=== PATIENT | female | born 1975 | race Hispanic/Latino ===

== ENCOUNTER 2017-11-16 06:21 | Emergency (ER) | payer BC ==
[2017-11-16] MEDS ORDERED: DICYCLOMINE HCL 10 MG CAP ONE (07:33)
[2017-11-16] MEDS ORDERED: ONDANSETRON 4 MG (ODT) TAB ONE (07:33)
[2017-11-16 07:53] LABS: Urine Blood 2+ (NEG); Urine Glucose NEGATIVE (NEG); Urine Protein 1+ (NEG); Urine Specific Gravity 1.025 (1.005-1.030); Urine pH 5.5 (5.0-7.0)
--- NOTE | 2017-11-16 08:28 | ER ---
Nurse's Notes [facility] Name: Aurora Barboza Age: 41 yrs Sex: Female : 1975 Arrival Date: 11/16/2017 Time: 06:21 Bed 7 Private MD: Diagnosis: Abdominal and pelvic pain;Gastroenteritis Presentation: 11/16 06:33 Presenting complaint: Patient states: I THOUGHT I HAD A STOMACH BUG BUT LAST NIGHT IT bp STARTED HURTING TOO BAD. Transition of care: patient was not received from another setting of care. Onset of symptoms was November 15, 2017 at 21:00. Care prior to arrival: None. 06:33 Method Of Arrival: Ambulatory bp 06:33 Acuity: KIRT 3 bp Triage Assessment: 06:34 General: Appears in no apparent distress. comfortable, obese, Behavior is calm, bp cooperative, appropriate for age. Pain: Complains of pain in right upper quadrant and left upper quadrant Pain currently is 8 out of 10 on a pain scale. EENT: No deficits noted. Neuro: Level of Consciousness is awake, alert, obeys commands, Oriented to Appropriate for age. Cardiovascular: No deficits noted. Respiratory: Airway is patent Respiratory effort is even, unlabored, Respiratory pattern is regular, symmetrical. GI: Abdomen is obese, Abd is soft X 4 quads. Derm: No deficits noted. Musculoskeletal: Capillary refill. 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 - Social history:: Smoking status: Patient/guardian denies using tobacco. Screenin:01 Abuse screen: Denies threats or abuse. Denies injuries from another. Nutritional hj screening: No deficits noted. Tuberculosis screening: No symptoms or risk factors identified. Fall Risk None identified. Assessment: 07:01 GI: Bowel sounds present X 4 quads. hj 07:02 General: Appears in no apparent distress. uncomfortable, Behavior is calm, cooperative, hj appropriate for age. Pain: Complains of pain in right upper quadrant and left upper quadrant. Neuro: Level of Consciousness is awake, alert, obeys commands, Oriented to person, place, time, situation, Appropriate for age. Cardiovascular: Capillary refill < 3 seconds Patient's skin is warm and dry. Respiratory: Airway is patent Respiratory effort is even, unlabored, Respiratory pattern is regular, symmetrical. GI: Reports upper abdominal pain, nausea. GI: Abdomen is non-distended, Abd is soft Abd is non tender. : No signs and/or symptoms were reported regarding the genitourinary system. EENT: No signs and/or symptoms were reported regarding the EENT system. Derm: No signs and/or symptoms reported regarding the dermatologic system. Musculoskeletal: No signs and/or symptoms reported regarding the musculoskeletal system. 08:42 Reassessment: Patient and/or family updated on plan of care and expected duration. Pain hj level reassessed. Patient is alert, oriented x 3, equal unlabored respirations, skin warm/dry/pink. Vital Signs: 06:35 BP 131 / 74; Pulse 100; Resp 18; Temp 98.2; Pulse Ox 100% ; Weight 90.72 kg; Height 5 bp ft. 1 in. (154.94 cm); Pain 8/10; 07:03 BP 119 / 83; Pulse 95; Resp 18; Pulse Ox 100% on R/A; hj 08:41 BP 120 / 78; Pulse 90; Resp 18; Pulse Ox 100% on R/A; hj 06:35 Body Mass Index 37.79 (90.72 kg, 154.94 cm) bp ED Course: 06:21 Patient arrived in ED. ds1 06:29 Jeremy Goodrich, RN is Primary Nurse. bp 06:34 Triage completed. bp 06:35 Arm band placed on. bp 06:58 Manoj Avalos PA is PHCP. jr8 06:58 Benito Blunt MD is Attending Physician. jr8 07:01 Patient has correct armband on for positive identification. Placed in gown. Bed in low hj position. Call light in reach. Side rails up X 1. Adult w/ patient. 08:01 Patient moved to radiology via wheelchair. jb2 08:04 XRAY KUB In Process Unspecified. EDMS 08:18 X-ray completed. Patient tolerated procedure well. Patient moved back from radiology. jb2 08:40 No provider procedures requiring assistance completed. Patient did not have IV access hj during this emergency room visit. Administered Medications: 07:11 Drug: Bentyl 20 mg Route: PO; 07:15 Follow up: Response: No adverse reaction; Pain is decreased 07:11 Drug: Zofran 4 mg Route: PO; 07:16 Follow up: Response: No adverse reaction; Nausea is decreased Outcome: 08:27 Discharge ordered by MD. altman 08:41 Discharged to home ambulatory, with family. 08:41 Condition: stable 08:41 Discharge instructions given to patient, family, Instructed on discharge instructions, follow up and referral plans. medication usage, Demonstrated understanding of instructions, follow-up care, medications, Prescriptions given X 2. 08:42 Patient left the ED. Signatures: Dispatcher [employer] EDMS Romie Contreras jb2 Sho Dan Josh, PA PA jr8 Isaias Marie, RN RN Jeremy Solorzano, RN RN bp Corrections: (The following items were deleted from the chart) 08:11 08:03 X-ray completed. Patient tolerated procedure well. hunter jb2 08:11 08:03 Patient moved back from radiology. jb2 jb2
--- NOTE | 2017-11-16 08:28 | EDPHYS ---
Physician Documentation [facility] Name: Aurora Barboza Age: 41 yrs Sex: Female : 1975 Arrival Date: 11/16/2017 Time: 06:21 Bed 7 Private MD: ED Physician Benito Blunt HPI: 11/16 08:11 This 41 yrs old Female presents to ER via Ambulatory with complaints of jr8 Abdominal Pain. 08:11 The patient presents with abdominal pain in the upper abdomen. Onset: The jr8 symptoms/episode began/occurred acutely, 2 day(s) ago. The symptoms do not radiate. Associated signs and symptoms: Pertinent positives: nausea, vomiting, and diarrhea. The symptoms are described as crampy. Modifying factors: The symptoms are alleviated by nothing, the symptoms are aggravated by food. Severity of pain: At its worst the pain was mild in the emergency department the pain is unchanged. It is unknown whether or not the patient has had similar symptoms in the past. The patient has not recently seen a physician. Patient stated that she had n/v/d over the past two days with mild abdominal cramping. N/V/D has subsided. Had eaten a good bit yesterday. Started to have abdominal cramping again and wanted to be evaluated . 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 - Social history:: Smoking status: Patient/guardian denies using tobacco. ROS: 08:11 Eyes: Negative for injury, pain, redness, and discharge, ENT: Negative for injury, jr8 pain, and discharge, Neck: Negative for injury, pain, and swelling, Cardiovascular: Negative for chest pain, palpitations, and edema, Respiratory: Negative for shortness of breath, cough, wheezing, and pleuritic chest pain, Back: Negative for injury and pain, MS/Extremity: Negative for injury and deformity, Skin: Negative for injury, rash, and discoloration, Neuro: Negative for headache, weakness, numbness, tingling, and seizure. 08:11 Abdomen/GI: Positive for nausea, vomiting, and diarrhea, abdominal cramps, Negative for abdominal distension, anorexia, dysphagia, hematemesis, black/tarry stool, rectal pain, rectal bleeding, bowel incontinence, flatulence. Exam: 08:11 Eyes: Pupils equal round and reactive to light, extra-ocular motions intact. Lids and jr8 lashes normal. Conjunctiva and sclera are non-icteric and not injected. Cornea within normal limits. Periorbital areas with no swelling, redness, or edema. ENT: Nares patent. No nasal discharge, no septal abnormalities noted. Tympanic membranes are normal and external auditory canals are clear. Oropharynx with no redness, swelling, or masses, exudates, or evidence of obstruction, uvula midline. Mucous membranes moist. Neck: Trachea midline, no thyromegaly or masses palpated, and no cervical lymphadenopathy. Supple, full range of motion without nuchal rigidity, or vertebral point tenderness. No Meningismus. Cardiovascular: Regular rate and rhythm with a normal S1 and S2. No gallops, murmurs, or rubs. Normal PMI, no JVD. No pulse deficits. Respiratory: Lungs have equal breath sounds bilaterally, clear to auscultation and percussion. No rales, rhonchi or wheezes noted. No increased work of breathing, no retractions or nasal flaring. Back: No spinal tenderness. No costovertebral tenderness. Full range of motion. Skin: Warm, dry with normal turgor. Normal color with no rashes, no lesions, and no evidence of cellulitis. MS/ Extremity: Pulses equal, no cyanosis. Neurovascular intact. Full, normal range of motion. Neuro: Awake and alert, GCS 15, oriented to person, place, time, and situation. Cranial nerves II-XII grossly intact. Motor strength 5/5 in all extremities. Sensory grossly intact. Cerebellar exam normal. Normal gait. 08:11 Abdomen/GI: Inspection: abdomen appears normal, Bowel sounds: active, all quadrants, Palpation: abdomen is soft and non-tender, in all quadrants, Indicators: McBurney's point is not tender, Armstrong's sign is negative, Rovsing's sign is negative, Liver: no appreciated palpable abnormalities, tenderness, is not appreciated. Vital Signs: 06:35 BP 131 / 74; Pulse 100; Resp 18; Temp 98.2; Pulse Ox 100% ; Weight 90.72 kg; Height 5 bp ft. 1 in. (154.94 cm); Pain 8/10; 07:03 BP 119 / 83; Pulse 95; Resp 18; Pulse Ox 100% on R/A; hj 08:41 BP 120 / 78; Pulse 90; Resp 18; Pulse Ox 100% on R/A; hj 06:35 Body Mass Index 37.79 (90.72 kg, 154.94 cm) bp MDM: 06:58 Patient medically screened. jr8 08:26 Data reviewed: vital signs, nurses notes, lab test result(s), radiologic studies, plain jr8 films, and as a result, I will discharge patient. Data interpreted: Pulse oximetry: on room air is 100 %. Interpretation: normal. Counseling: I had a detailed discussion with the patient and/or guardian regarding: the historical points, exam findings, and any diagnostic results supporting the discharge/admit diagnosis, lab results, radiology results, the need for outpatient follow up, a family practitioner, to return to the emergency department if symptoms worsen or persist or if there are any questions or concerns that arise at home. Response to treatment: the patient's symptoms have markedly improved after treatment. Special discussion: Based on the patient's Hx, exam, and Dx evaluation, there is no indication for emergent surgery or inpatient Tx. It is understood by the patient/guardian that if the Sx's persist or worsen they need to return immediately for re-evaluation. 11/16 06:40 Order name: Urine Dipstick--Ancillary (enter results); Complete Time: 07:58 em1 11/16 06:40 Order name: Urine --Ancillary (enter results); Complete Time: 07:58 em1 11/16 07:45 Order name: ALVA TINOCO jr8 Administered Medications: 07:11 Drug: Bentyl 20 mg Route: PO; hj 07:15 Follow up: Response: No adverse reaction; Pain is decreased hj 07:11 Drug: Zofran 4 mg Route: PO; hj 07:16 Follow up: Response: No adverse reaction; Nausea is decreased hj Disposition: 11/17 00:20 Co-signature as Attending Physician, Benito Blunt MD I agree with the assessment and 4 plan of care. Disposition: 11/16/17 08:27 Discharged to Home. Impression: Abdominal and pelvic pain, Gastroenteritis. - Condition is Stable. - Discharge Instructions: Abdominal Pain, Adult, Viral Gastroenteritis. - Prescriptions for Bentyl 20 mg Oral Tablet - take 1 tablet by ORAL route every 6 hours As needed; 20 tablet. ondansetron 4 mg Oral tablet,disintegrating - take 1 tablet by ORAL route every 8 hours; 20 tablet. - Medication Reconciliation Form, Thank You Letter, Antibiotic Education, Prescription Opioid Use form. - Follow up: Private Physician; When: 5 - 6 days; Reason: Recheck today's complaints, Continuance of care, Re-evaluation by your physician. - Problem is new. - Symptoms have improved. Signatures: Dispatcher [employer] EDMS Manoj Avalos PA PA jr8 Isaias Marie RN RN hj Peltier, Brian, RN RN Benito Curtis MD MD [id number]
--- NOTE | 2017-11-16 09:19 | RAD REPORT ---
EXAM DESCRIPTION: RAD - Abdomen 1 View (KUB) - 11/16/2017 8:14 am CLINICAL HISTORY: Abdomen pain. FINDINGS: The bowel gas pattern is unremarkable. Small calcifications in the pelvis are nonspecific but probably represent phleboliths. Surgical clips are present within the right upper quadrant
== END 2017-11-16 08:42 | disposition home or self-care (01) ==
LOC: ER 06:21
DX: K52.9 Noninfective gastroenteritis and colitis, unspecified (principal)
CPT/HCPCS: 74018; 81003; 81025; 99283

== ENCOUNTER 2018-01-21 12:52 | Emergency (ER) | payer BC ==
[2018-01-21 15:13] LABS: BUN Blood Urea Nitrogen 10 mg/dL (6-20); Bicarbonate 27 mEq/L (21-31); Glucose Level 96 mg/dL (65-120); Potassium 3.7 mEq/L (3.6-5.0); Sodium Level 136 mEq/L (135-145)
[2018-01-21 15:36] LABS: Absolute Lymphocytes (CBC) 1.8 K/uL (0.7-4.9); Absolute Monocytes 0.6 K/uL (0.1-1.3); Absolute Neutrophil 4.4 K/uL (1.8-8.0); Basophils % 0.4 % (0-1.3); Eosinophils % 2.5 % (0-4.4); Lymphocytes % 25.5 % (15.3-44.8); MCH 30.2 pg (27.0-35.0); MCV 87.5 fL (80-100); MPV 10.1 fL (7.6-11.3); Monocytes % 8.1 % (3.3-12.3)
--- NOTE | 2018-01-21 15:40 | EDPHYS ---
Physician Documentation [facility] Name: Aurora Barboza Age: 42 yrs Sex: Female : 1975 Arrival Date: 01/21/2018 Time: 12:56 Bed 16 Private MD: Sancho Brand H ED Physician Hugo Oliver HPI: 01/21 14:47 This 42 yrs old Female presents to ER via Ambulatory with complaints of rn Weakness. 14:47 The patient presents to the emergency department with weakness of the entire body, rn generalized weakness. Onset: The symptoms/episode began/occurred 4 day(s) ago. Associated signs and symptoms: Pertinent positives: weakness, Pertinent negatives: altered mental status, fever, seizure, syncope, blurred vision, double vision, visual field changes, loss of vision. Severity of symptoms: At their worst the symptoms were mild in the emergency department the symptoms are unchanged. Current symptoms: generalized weakness. The patient has experienced a previous episode. REports generalized weakness for a few days, no fever/vomiting/diarrhea/cough/sob/abd pain. Similar episode in past and was low on potassium, improved with potassium.. 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 - Social history:: Smoking status: Patient/guardian denies using tobacco. - Ebola Screening: : Patient denies travel to an Ebola-affected area in the 21 days before illness onset. - Family history:: not pertinent. - Hospitalizations: : No recent hospitalization is reported. ROS: 14:47 Constitutional: Negative for fever, chills, and weight loss, Eyes: Negative for injury, rn pain, redness, and discharge, Neck: Negative for injury, pain, and swelling, Cardiovascular: Negative for chest pain, palpitations, and edema, Respiratory: Negative for shortness of breath, cough, wheezing, and pleuritic chest pain, Abdomen/GI: Negative for abdominal pain, nausea, vomiting, diarrhea, and constipation, Back: Negative for injury and pain, MS/Extremity: Negative for injury and deformity, Skin: Negative for injury, rash, and discoloration, Neuro: Negative for headache, numbness, tingling, and seizure. Exam: 14:47 Constitutional: This is a well developed, well nourished patient who is awake, alert, rn and in no acute distress. Head/Face: Normocephalic, atraumatic. Eyes: Pupils equal round and reactive to light, extra-ocular motions intact. Lids and lashes normal. Conjunctiva and sclera are non-icteric and not injected. Cornea within normal limits. Periorbital areas with no swelling, redness, or edema. Neck: Trachea midline, no thyromegaly or masses palpated, and no cervical lymphadenopathy. Supple, full range of motion without nuchal rigidity, or vertebral point tenderness. No Meningismus. Cardiovascular: Regular rate and rhythm with a normal S1 and S2. No gallops, murmurs, or rubs. Normal PMI, no JVD. No pulse deficits. Respiratory: Lungs have equal breath sounds bilaterally, clear to auscultation and percussion. No rales, rhonchi or wheezes noted. No increased work of breathing, no retractions or nasal flaring. Abdomen/GI: Soft, non-tender, with normal bowel sounds. No distension or tympany. No guarding or rebound. No evidence of tenderness throughout. Skin: Warm, dry with normal turgor. Normal color with no rashes, no lesions, and no evidence of cellulitis. MS/ Extremity: Pulses equal, no cyanosis. Neurovascular intact. Full, normal range of motion. Equal circumference. Neuro: Awake and alert, GCS 15, oriented to person, place, time, and situation. Cranial nerves II-XII grossly intact. Motor strength 5/5 in all extremities. Sensory grossly intact. Cerebellar exam normal. Normal gait. Vital Signs: 13:42 BP 127 / 88; Pulse 76; Resp 18; Temp 98.3(O); Pulse Ox 100% on R/A; Weight 91.17 kg aj1 (R); Height 5 ft. 1 in. (154.94 cm) (R); Pain 0/10; 15:30 BP 129 / 82; Pulse 66; Resp 16 S; Pulse Ox 100% on R/A; Pain 0/10; aa5 13:42 Body Mass Index 37.98 (91.17 kg, 154.94 cm) aj1 MDM: 14:29 Patient medically screened. rn 15:39 Data reviewed: vital signs, nurses notes, lab test result(s), and as a result, I will rn staff patient. Counseling: I had a detailed discussion with the patient and/or guardian regarding: the historical points, exam findings, and any diagnostic results supporting the discharge/admit diagnosis, lab results, the need for outpatient follow up, to return to the emergency department if symptoms worsen or persist or if there are any questions or concerns that arise at home. Special discussion: I discussed with the patient/guardian in detail that at this point there is no indication for admission to the hospital. It is understood, however, that if the symptoms persist or worsen the patient needs to return immediately for re-evaluation. 01/21 14:41 Order name: CBC with Diff; Complete Time: 15:39 rn 01/21 14:41 Order name: Basic Metabolic Panel; Complete Time: 15:39 rn 01/21 14:41 Order name: IV Start; Complete Time: 15:11 rn 01/21 14:41 Order name: Urine Dipstick-Ancillary (obtain specimen); Complete Time: 15:11 rn 01/21 15:08 Order name: Urine Dipstick--Ancillary (enter results) 01/21 15:08 Order name: Urine --Ancillary (enter results) bd 01/21 14:41 Order name: Urine Test (obtain specimen); Complete Time: 15:11 rn Administered Medications: No medications were administered Disposition: 01/21/18 15:40 Discharged to Home. Impression: Weakness. - Condition is Stable. - Discharge Instructions: Weakness. - Medication Reconciliation Form, Thank You Letter, Antibiotic Education, Prescription Opioid Use form. - Follow up: Private Physician; When: As needed; Reason: Recheck today's complaints, Re-evaluation by your physician. - Problem is new. - Symptoms have improved. Signatures: Dispatcher [employer] Sudha Ceja RN RN aj1 Hugo Oliver MD MD rn Calderon, Audri, RN RN aa5 Corrections: (The following items were deleted from the chart) 16:15 15:40 01/21/2018 15:40 Discharged to Home. Impression: Weakness. Condition is Stable. aa5 Forms are Medication Reconciliation Form, Thank You Letter, Antibiotic Education, Prescription Opioid Use. Follow up: Private Physician; When: As needed; Reason: Recheck today's complaints, Re-evaluation by your physician. Problem is new. Symptoms have improved. rn
--- NOTE | 2018-01-21 15:40 | ER ---
Nurse's Notes [facility] Name: Aurora Barboza Age: 42 yrs Sex: Female : 1975 Arrival Date: 01/21/2018 Time: 12:56 Bed 16 Private MD: Sancho Brand H Diagnosis: Weakness Presentation: 01/21 13:36 Presenting complaint: Patient states: "I've been feeling fatigued. 4 years ago I had my aj1 potassium low and I felt like this" Reports fatigue and dizziness. Transition of care: patient was not received from another setting of care. No acute neurological deficit is noted. Onset of symptoms was January 17, 2018. Risk Assessment: Do you want to hurt yourself or someone else? Patient reports no desire to harm self or others. Initial Sepsis Screen: Does the patient meet any 2 criteria? No. Patient's initial sepsis screen is negative. Does the patient have a suspected source of infection? No. Patient's initial sepsis screen is negative. Care prior to arrival: None. 13:36 Method Of Arrival: Ambulatory [facility] 13:36 Acuity: KIRT 3 aj Triage Assessment: 13:42 The onset of the patients symptoms was more than six hours ago. The onset of the aj1 patients symptoms was January 17, 2018 at 08:00. General: Appears in no apparent distress. comfortable, Behavior is calm, cooperative, appropriate for age. Pain: Denies pain. Neuro: Level of Consciousness is awake, alert, obeys commands, Oriented to person, place, time, situation, Applied Research Director are equal bilaterally Moves all extremities. Full function Gait is steady, Speech is normal, Facial symmetry appears normal, Reports dizziness, weakness. Cardiovascular: Patient's skin is warm and dry. Respiratory: Airway is patent Respiratory effort is even, unlabored, Respiratory pattern is regular, symmetrical. Derm: Skin is pink, warm \\T\\ dry. normal. Musculoskeletal: No signs and/or symptoms reported regarding the musculoskeletal system. Circulation, motion, and sensation intact. 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 Stroke Activation: Symptom onset > 6 hours Physician: Stroke Attending; Name: ; Notified At: ; Arrived At: Physician: Chief Stroke Resident; Name: ; Notified At: ; Arrived At: Physician: Stroke Resident; Name: ; Notified At: ; Arrived At: Physician: ED Attending; Name: ; Notified At: ; Arrived At: Physician: ED Resident; Name: ; Notified At: ; Arrived At: Historical: - Allergies: 13:42 No Known Allergies; aj1 - Home Meds: 13:42 levothyroxine 50 mcg tab 1 tab once daily [Active]; aj1 - PMHx: 13:42 PCOS; Hypothyroidism; aj1 - PSHx: 13:42 Cholecystectomy; aj1 - Immunization history:: Flu vaccine is not up to date. - Social history:: Smoking status: Patient/guardian denies using tobacco. - Ebola Screening: : Patient denies travel to an Ebola-affected area in the 21 days before illness onset. - Family history:: not pertinent. - Hospitalizations: : No recent hospitalization is reported. Screenin:50 Abuse screen: Denies threats or abuse. Nutritional screening: No deficits noted. aa5 Tuberculosis screening: No symptoms or risk factors identified. Fall Risk None identified. Assessment: 14:50 General: Appears comfortable, Behavior is calm, cooperative. Pain: Denies pain. Neuro: aa5 Level of Consciousness is awake, alert, obeys commands, Oriented to person, place, time, situation, Applied Research Director are equal bilaterally Moves all extremities. Gait is steady, Speech is normal, Facial symmetry appears normal, Pupils are PERRLA, Reports weakness Pt also reports intermittent dizziness, denies dizziness currently, pt states "I take meclizine for the dizziness" . Cardiovascular: Heart tones S1 S2 present Rhythm is regular. Respiratory: Airway is patent Respiratory effort is even, unlabored, Respiratory pattern is regular, symmetrical, Breath sounds are clear bilaterally. GI: Abdomen is round non-distended, Bowel sounds present X 4 quads. Abd is soft and non tender X 4 quads. : No signs and/or symptoms were reported regarding the genitourinary system. EENT: No signs and/or symptoms were reported regarding the EENT system. Derm: Skin is pink, warm \\T\\ dry. Musculoskeletal: Range of motion: intact in all extremities. 16:10 Reassessment: Patient is alert, oriented x 3, equal unlabored respirations, skin aa5 warm/dry/pink. Patient denies pain at this time. Vital Signs: 13:42 BP 127 / 88; Pulse 76; Resp 18; Temp 98.3(O); Pulse Ox 100% on R/A; Weight 91.17 kg aj1 (R); Height 5 ft. 1 in. (154.94 cm) (R); Pain 0/10; 15:30 BP 129 / 82; Pulse 66; Resp 16 S; Pulse Ox 100% on R/A; Pain 0/10; aa5 13:42 Body Mass Index 37.98 (91.17 kg, 154.94 cm) aj1 ED Course: 12:56 Patient arrived in ED. mr 12:56 Sancho Brand DO is Private Physician. mr 13:41 Triage completed. aj1 13:42 Arm band placed on Patient placed in waiting room, Patient notified of wait time. aj1 14:23 Anne Marie Escobar, RN is Primary Nurse. aa5 14:29 Hugo Oliver MD is Attending Physician. rn 14:50 Patient has correct armband on for positive identification. Placed in gown. Bed in low aa5 position. Call light in reach. Side rails up X2. 15:00 Urine collected: clean catch specimen, clear. dh3 15:00 Initial lab(s) drawn, by ca, sent to lab. Inserted saline lock: 22 gauge in left aa5 antecubital area, using aseptic technique. Blood collected. 15:39 No provider procedures requiring assistance completed. aa5 16:10 IV discontinued, intact, bleeding controlled, No redness/swelling at site. Pressure aa5 dressing applied. Administered Medications: No medications were administered Outcome: 15:40 Discharge ordered by . rn 16:10 Discharged to home ambulatory. aa5 16:10 Condition: stable 16:10 Discharge instructions given to patient, Instructed on discharge instructions, follow up and referral plans. Demonstrated understanding of instructions, follow-up care. 16:15 Patient left the ED. aa5 Signatures: Sudha Forrest RN RN aj1 Josie Anne mr uHgo Oliver MD MD rn Calderon, Audri, RN RN 5 Imelda Mcclain 3
[2018-01-21 16:01] LABS: Urine Blood 1+ (NEG); Urine Glucose NEGATIVE (NEG); Urine Protein NEGATIVE (NEG)
== END 2018-01-21 16:15 | disposition home or self-care (01) ==
LOC: ER 12:52
DX: R53.1 Weakness (principal); E28.2 Polycystic ovarian syndrome; E03.9 Hypothyroidism, unspecified
CPT/HCPCS: 36415; 80048; 81003; 81025; 85025; 99283

== ENCOUNTER 2019-07-22 08:54 | Emergency (ER) | payer BC, OTHER ==
--- NOTE | 2019-07-22 09:12 | ER ---
Nurse's Notes [facility] Name: Aurora Barboza Age: 43 yrs Sex: Female : 1975 Arrival Date: 07/22/2019 Time: 08:56 Bed 20 Private MD: Diagnosis: Allergic contact dermatitis due to other agents-Tamiflu Presentation: 07/22 09:03 Presenting complaint: Patient states: Patient took Tamiflu last week for two days and ss developed a rash all over. Given a Medrol Dose pack Thursday, but patient reports it is not helping, but now it is itching since yesterday. Transition of care: patient was not received from another setting of care. Onset: The symptoms/episode began/occurred 4 day(s) ago. Anaphylaxis evaluation, no signs or symptoms of anaphylaxis were noted. Onset of symptoms was July 18, 2019. Risk Assessment: Do you want to hurt yourself or someone else? Patient reports no desire to harm self or others. Initial Sepsis Screen: Does the patient meet any 2 criteria? No. Patient's initial sepsis screen is negative. Does the patient have a suspected source of infection? No. Patient's initial sepsis screen is negative. Care prior to arrival: None. 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 - Social history:: Smoking status: Patient/guardian denies using tobacco. - Ebola Screening: : Patient denies exposure to infectious person Patient denies travel to an Ebola-affected area in the 21 days before illness onset. Screenin:08 Abuse screen: Denies threats or abuse. Denies injuries from another. Nutritional ss screening: No deficits noted. Tuberculosis screening: Never had TB. Fall Risk None identified. Assessment: 09:08 General: Appears in no apparent distress. comfortable, Behavior is calm, cooperative, ss Denies fever, feeling ill, fatigue, chills. Pain: Denies pain. Neuro: Level of Consciousness is awake, alert, obeys commands, Oriented to person, place, time, situation. Cardiovascular: Capillary refill < 3 seconds is brisk in bilateral fingers. Respiratory: Airway is patent Respiratory effort is even, unlabored, Respiratory pattern is regular, Breath sounds are clear bilaterally. Denies cough, shortness of breath labored breathing. GI: No signs and/or symptoms were reported involving the gastrointestinal system. Derm: Rash noted that is macular, itchy, raised, Reports Rash that began 4 days ago, call over body, after taking Tamiflu. Rash has not improved even after starting Medrol Dose CECILIO. Itching began yesterday. Musculoskeletal: Circulation, motion, and sensation intact. Range of motion: intact in all extremities. Vital Signs: 09:07 BP 149 / 86; Pulse 84; Resp 16; Temp 97.6(TE); Pulse Ox 100% on R/A; Weight 93.44 kg; ss Height 5 ft. 1 in. (154.94 cm); Pain 0/10; 09:07 Body Mass Index 38.92 (93.44 kg, 154.94 cm) ED Course: 08:56 Patient arrived in ED. as 08:56 Jina Raymond, RN is Primary Nurse. iw 09:00 Patrice Pathak MD is Attending Physician. piedad 09:05 Triage completed. ss 09:06 Alley Tavarez FNP-C [facility]. snw 09:07 Arm band placed on right wrist. ss 09:08 Patient has correct armband on for positive identification. Bed in low position. Call ss light in reach. 09:19 No provider procedures requiring assistance completed. Patient did not have IV access iw during this emergency room visit. Administered Medications: 09:17 Drug: Atarax 50 mg Route: PO; iw 09:30 Follow up: Response: No adverse reaction iw 09:17 Drug: predniSONE 20 mg Route: PO; iw 09:30 Follow up: Response: No adverse reaction iw 09:17 Drug: Pepcid 20 mg Route: PO; iw 09:30 Follow up: Response: No adverse reaction iw Outcome: 09:11 Discharge ordered by . snw 09:19 Discharged to home ambulatory. iw 09:19 Condition: good 09:19 Discharge instructions given to patient, Instructed on discharge instructions, follow up and referral plans. Demonstrated understanding of instructions, follow-up care, medications, Prescriptions given X 3. 09:20 Patient left the ED. iw Signatures: Patrice Pathak MD MD cha Therrien, Shelly, DIRECTOR BIOINFORMATICS-C DIRECTOR BIOINFORMATICS-Bobw Shayna Almanzar Irene, RN RN iw Jo Ann Young RN RN ss
--- NOTE | 2019-07-22 09:13 | EDPHYS ---
Physician Documentation [facility] Name: Aurora Barboza Age: 43 yrs Sex: Female : 1975 Arrival Date: 07/22/2019 Time: 08:56 Bed 20 Private MD: ED Physician Patrice Pathak HPI: 07/22 09:23 This 43 yrs old Female presents to ER via Ambulatory with complaints of snw Itching, Rash. 09:23 The patient's rash thought to be caused by Dermatitis. The rash is located on the body snw diffusely. The rash can be described as patchy, pruritic. Onset: The symptoms/episode began/occurred suddenly. Associated signs and symptoms: Pertinent positives: itching. Severity of symptoms: At their worst the symptoms were moderate in the emergency department the symptoms are unchanged. Treatment given at home: oral steroids. The patient has not experienced similar symptoms in the past. pt was given Tamiflu for prophylaxis, took two days and erupted with rash, tamiflu was stopped and po Medrol dose pack begun. Pt began itching yesterday.. 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 - Social history:: Smoking status: Patient/guardian denies using tobacco. - Ebola Screening: : Patient denies exposure to infectious person Patient denies travel to an Ebola-affected area in the 21 days before illness onset. ROS: 09:23 Constitutional: Negative for fever, chills, and weight loss, Eyes: Negative for injury, snw pain, redness, and discharge, ENT: Negative for injury, pain, and discharge, Neck: Negative for injury, pain, and swelling, Cardiovascular: Negative for chest pain, palpitations, and edema, Respiratory: Negative for shortness of breath, cough, wheezing, and pleuritic chest pain, Abdomen/GI: Negative for abdominal pain, nausea, vomiting, diarrhea, and constipation, Back: Negative for injury and pain, : Negative for injury, bleeding, discharge, and swelling, MS/Extremity: Negative for injury and deformity, Neuro: Negative for headache, weakness, numbness, tingling, and seizure. 09:23 Skin: Positive for rash, itching. Exam: 09:22 Constitutional: This is a well developed, well nourished patient who is awake, alert, snw and in no acute distress. Head/Face: Normocephalic, atraumatic. Eyes: Pupils equal round and reactive to light, extra-ocular motions intact. Lids and lashes normal. Conjunctiva and sclera are non-icteric and not injected. Cornea within normal limits. Periorbital areas with no swelling, redness, or edema. ENT: Nares patent. No nasal discharge, no septal abnormalities noted. Tympanic membranes are normal and external auditory canals are clear. Oropharynx with no redness, swelling, or masses, exudates, or evidence of obstruction, uvula midline. Mucous membranes moist. Neck: Trachea midline, no thyromegaly or masses palpated, and no cervical lymphadenopathy. Supple, full range of motion without nuchal rigidity, or vertebral point tenderness. No Meningismus. Chest/axilla: Normal chest wall appearance and motion. Nontender with no deformity. No lesions are appreciated. Cardiovascular: Regular rate and rhythm with a normal S1 and S2. No gallops, murmurs, or rubs. Normal PMI, no JVD. No pulse deficits. Respiratory: Lungs have equal breath sounds bilaterally, clear to auscultation and percussion. No rales, rhonchi or wheezes noted. No increased work of breathing, no retractions or nasal flaring. Abdomen/GI: Soft, non-tender, with normal bowel sounds. No distension or tympany. No guarding or rebound. No evidence of tenderness throughout. Back: No spinal tenderness. No costovertebral tenderness. Full range of motion. MS/ Extremity: Pulses equal, no cyanosis. Neurovascular intact. Full, normal range of motion. Neuro: Awake and alert, GCS 15, oriented to person, place, time, and situation. Cranial nerves II-XII grossly intact. Motor strength 5/5 in all extremities. Sensory grossly intact. Cerebellar exam normal. Normal gait. Psych: Awake, alert, with orientation to person, place and time. Behavior, mood, and affect are within normal limits. 09:22 Skin: Appearance: normal except for affected area, consistent with drug rash. Vital Signs: 09:07 BP 149 / 86; Pulse 84; Resp 16; Temp 97.6(TE); Pulse Ox 100% on R/A; Weight 93.44 kg; ss Height 5 ft. 1 in. (154.94 cm); Pain 0/10; 09:07 Body Mass Index 38.92 (93.44 kg, 154.94 cm) ss MDM: 09:00 Patient medically screened. piedad Administered Medications: : Drug: Atarax 50 mg Route: PO; iw 09:30 Follow up: Response: No adverse reaction iw : Drug: predniSONE 20 mg Route: PO; iw :30 Follow up: Response: No adverse reaction iw : Drug: Pepcid 20 mg Route: PO; iw Follow up: Response: No adverse reaction Disposition: 15:15 Co-signature as Attending Physician, Patrice Pathak MD I agree with the assessment and [facility] plan of care. Disposition: 07/22/19 09:11 Discharged to Home. Impression: Allergic contact dermatitis due to other agents - Tamiflu. - Condition is Stable. - Discharge Instructions: Contact Dermatitis, Rash. - Prescriptions for Vistaril 50 mg Oral capsule - take 1 capsule by ORAL route 3 times per day; 30 capsule. Prednisone 20 mg Oral Tablet - take 2 tablet by ORAL route once daily for 5 days; 10 tablet. Pepcid 20 mg Oral Tablet - take 1 tablet by ORAL route once daily; 20 tablet. - Work release form, Medication Reconciliation Form, Thank You Letter, Antibiotic Education, Prescription Opioid Use form. - Follow up: Private Physician; When: 2 - 3 days; Reason: Recheck today's complaints, Continuance of care, Re-evaluation by your physician. Follow up: Emergency Department; When: As needed; Reason: Worsening of condition. Signatures: Patrice Pathak MD MD cha Therrien, Shelly, VETERINARY SURGEON-C VETERINARY SURGEON-Csnw Jina Raymond RN RN Jo Ann Young RN RN ss Corrections: (The following items were deleted from the chart) 09:20 09:11 07/22/2019 09:11 Discharged to Home. Impression: Allergic contact dermatitis due iw to other agents - Tamiflu. Condition is Stable. Forms are Medication Reconciliation Form, Thank You Letter, Antibiotic Education, Prescription Opioid Use. Follow up: Private Physician; When: 2 - 3 days; Reason: Recheck today's complaints, Continuance of care, Re-evaluation by your physician. Follow up: Emergency Department; When: As needed; Reason: Worsening of condition. snw
[2019-07-22] MEDS ORDERED: predniSONE 20 MG TAB ONE (09:15)
[2019-07-22] MEDS ORDERED: hydrOXYzine HCL 25 MG TAB ONE (09:15)
[2019-07-22] MEDS ORDERED: FAMOTIDINE 20 MG TAB ONE (09:16)
[2019-07-22 11:24] VITALS: BP 149/86; TEMP 97.6; O2SAT 100
== END 2019-07-22 09:20 | disposition home or self-care (01) ==
LOC: ER 08:54
DX: L23.89 Allergic contact dermatitis due to other agents (principal); L27.0 Generalized skin eruption due to drugs and medicaments taken internally; T37.5X5A Adverse effect of antiviral drugs, initial encounter; Y92.9 Unspecified place or not applicable
CPT/HCPCS: 99283; J7512

== ENCOUNTER 2022-10-29 11:23 | Emergency (ER) | payer OTHER ==
[2022-10-29 12:25] LABS: Absolute Lymphocytes (CBC) 1.5 K/uL (0.7-4.9); Hematocrit 41.6 % (36.0-45.0); Lymphocytes % 14.1 % (15.3-44.8); MCV 88.6 fL (80-100); MPV 9.2 fL (7.6-11.3); RBC Red Blood Cell Count 4.69 M/uL (3.86-4.86)
--- NOTE | 2022-10-29 12:28 | RAD REPORT ---
EXAM DESCRIPTION: CT - Head Brain Wo Cont - 10/29/2022 12:22 pm CLINICAL HISTORY: Dizziness COMPARISON: none TECHNIQUE: Computed axial tomography of the head was obtained. IV contrast was not requested. All CT scans are performed using dose optimization technique as appropriate and may include automated exposure control or mA/KV adjustment according to patient size. FINDINGS: An intracranial bleed is not seen The ventricles are normal in caliber No significant hypodense areas within the brain visualized No extra-axial fluid collection is noted. Fluid within the sinuses/ mastoids is not seen IMPRESSION: No acute intracranial abnormality is seen If patient's symptoms persist MRI of the brain would be recommended
[2022-10-29 12:38] LABS: Specific Gravity 1.022 (1.005-1.030)
[2022-10-29 12:49] LABS: Albumin 3.8 g/dL (3.4-5.0); Bilirubin Total 0.7 mg/dL (0.2-1.0); Potassium 3.5 mEq/L (3.5-5.1); Protein, Total 7.7 g/dL (6.4-8.2)
--- NOTE | 2022-10-29 13:45 | EDPHYS ---
Physician Documentation [facility] Name: Aurora Barboza Age: 46 yrs Sex: Female : 1975 Arrival Date: 10/29/2022 Time: 11:26 Bed DIS4 Private MD: Sancho Brand H ED Physician Cliff Sanchez HPI: 10/29 11:54 This 46 yrs old Female presents to ER via Ambulatory with complaints of snw Dizziness. 11:54 The patient presents with lightheadedness, feeling off balance. Onset: The snw symptoms/episode began/occurred suddenly. Context: occurred at home, occurred while the patient was at rest, just prior to the episode the patient experienced right hearing decrease and watery feeling to right ear canal. Modifying factors: The symptoms are alleviated by took Meclizine that usually helps but it did not relieve s/s today. Associated signs and symptoms: Pertinent positives: hearing decreased in right ear, sometimes pt has low potassium per report. Severity of symptoms: At their worst the symptoms were moderate in the emergency department the symptoms have improved mildly. Patient's baseline: Neuro: alert and fully oriented, Motor: no deficits, Ambulation: walks without assistance, Speech: normal. The patient has experienced similar episodes in the past, multiple times, but today's symptoms are worse. It is unknown whether or not the patient has recently seen a physician. 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 - Social history:: Smoking status: unknown. ROS: 11:53 Eyes: Negative for injury, pain, redness, and discharge, ENT: Negative for injury, snw pain, and discharge, loss of hearing and watery feeling in right ear Neck: Negative for injury, pain, and swelling, Cardiovascular: Negative for chest pain, palpitations, and edema, Respiratory: Negative for shortness of breath, cough, wheezing, and pleuritic chest pain, Abdomen/GI: Negative for abdominal pain, nausea, vomiting, diarrhea, and constipation, Back: Negative for injury and pain, : Negative for injury, bleeding, discharge, and swelling, MS/Extremity: Negative for injury and deformity, Skin: Negative for injury, rash, and discoloration, Neuro: Negative for headache, weakness, numbness, tingling, and seizure, positive for dizziness Psych: Negative for depression, anxiety, suicide ideation, homicidal ideation, and hallucinations. 11:53 Constitutional: Positive for malaise, dizziness. Exam: 11:56 Head/Face: Normocephalic, atraumatic. Eyes: Pupils equal round and reactive to light, snw extra-ocular motions intact. Lids and lashes normal. Conjunctiva and sclera are non-icteric and not injected. Cornea within normal limits. Periorbital areas with no swelling, redness, or edema.no nystagmus ENT: Nares patent. No nasal discharge, no septal abnormalities noted. Tympanic membranes are normal on left but right canal full of moist appearing cerumen/exudate and TM is not visualized. Oropharynx with no redness, swelling, or masses, exudates, or evidence of obstruction, uvula midline. Mucous membranes moist. Neck: Trachea midline, no thyromegaly or masses palpated, and no cervical lymphadenopathy. Supple, full range of motion without nuchal rigidity, or vertebral point tenderness. No Meningismus. Chest/axilla: Normal chest wall appearance and motion. Nontender with no deformity. No lesions are appreciated. Cardiovascular: Regular rate and rhythm with a normal S1 and S2. No gallops, murmurs, or rubs. Normal PMI, no JVD. No pulse deficits. Respiratory: Lungs have equal breath sounds bilaterally, clear to auscultation and percussion. No rales, rhonchi or wheezes noted. No increased work of breathing, no retractions or nasal flaring. Abdomen/GI: Soft, non-tender, with normal bowel sounds. No distension or tympany. No guarding or rebound. No evidence of tenderness throughout. Back: No spinal tenderness. No costovertebral tenderness. Full range of motion. Skin: Warm, dry with normal turgor. Normal color with no rashes, no lesions, and no evidence of cellulitis. MS/ Extremity: Pulses equal, no cyanosis. Neurovascular intact. Full, normal range of motion. Neuro: Awake and alert, GCS 15, oriented to person, place, time, and situation. Cranial nerves II-XII grossly intact. Motor strength 5/5 in all extremities. Sensory grossly intact. Cerebellar exam normal. Normal gait. Psych: Awake, alert, with orientation to person, place and time. Behavior, mood, and affect are within normal limits. 11:56 Constitutional: The patient appears alert, awake, anxious. Vital Signs: 11:38 BP 189 / 86; Pulse 97; Resp 16; Temp 97.4; Pulse Ox 100% on R/A; Weight 90.72 kg; hb Height 5 ft. 1 in. ; Pain 0/10; 13:33 BP 146 / 69 Sitting; Pulse 100; ap3 13:38 BP 156 / 73 Standing; Pulse 103; ap3 11:38 Body Mass Index 37.79 (90.72 kg, 154.94 cm) hb 11:38 Pain Scale: Adult hb MDM: 11:46 Patient medically screened. snw 11:59 Differential diagnosis: near-syncope, vertigo, electrolyte derangement. snw 13:45 Data reviewed: vital signs, nurses notes, lab test result(s), radiologic studies, CT snw scan. Counseling: I had a detailed discussion with the patient and/or guardian regarding: the historical points, exam findings, and any diagnostic results supporting the discharge/admit diagnosis, the presence of at least one elevated blood pressure reading (>120/80) during this emergency department visit, lab results, radiology results, the need for outpatient follow up, for definitive care, to return to the emergency department if symptoms worsen or persist or if there are any questions or concerns that arise at home. Response to treatment: the patient's symptoms have mildly improved after treatment, blood pressure trending down. Awaiting: IVF. 10/29 11:52 Order name: CBC with Diff; Complete Time: 12:33 snw 10/29 11:52 Order name: CMP; Complete Time: 12:54 snw 10/29 11:52 Order name: Test, Urine; Complete Time: 12:40 snw 10/29 11:52 Order name: CT Head Brain wo Cont; Complete Time: 12:33 snw 10/29 11:52 Order name: SL; Complete Time: 12:17 snw 10/29 13:17 Order name: Orthostatic Blood Pressure; Complete Time: 13:41 snw Administered Medications: 13:51 Drug: NS 0.9% IV 500 ml Route: IV; Rate: bolus; Site: right forearm; ap3 14:20 Follow up: IV Status: Completed infusion; IV Intake: 500ml ss Disposition: 17:23 Co-signature as Attending Physician, Cliff Sanchez MD I reviewed the patient's care rt provided by the Advanced Practice Provider and agree with the diagnosis and treatment plan. Disposition Summary: 10/29/22 13:44 Discharge Ordered Location: Home snw Condition: Stable snw Diagnosis - Dizziness and giddiness snw Followup: snw - With: Sancho Brand, DO - When: 2 - 3 days - Reason: Recheck today's complaints, Continuance of care, Re-evaluation by your physician Followup: snw - With: Emergency Department - When: As needed - Reason: Worsening of condition Discharge Instructions: - Discharge Summary Sheet snw - Dizziness snw - Rehydration, Adult snw Forms: - Medication Reconciliation Form snw - Thank You Letter snw - Antibiotic Education snw - Prescription Opioid Use snw Signatures: Dispatcher [employer] EDMS Alley Marie FNP-C [employer] E[employer] AGENT-Csnw Michela Mathur RN RN Elaine Samaniego RN RN ap3 Cliff Sanchez MD MD rt Jo Ann Young RN ss
--- NOTE | 2022-10-29 13:45 | ER ---
Nurse's Notes [facility] Name: Aurora Barboza Age: 46 yrs Sex: Female : 1975 Arrival Date: 10/29/2022 Time: 11:26 Bed DIS4 Private MD: Sancho Brand H Diagnosis: Dizziness and giddiness Presentation: 10/29 11:38 Chief complaint: Dizziness and decreased hearing in right ear since last night. Took hb meclizine 25 mg at 0900. Coronavirus screen: At this time, the client does not indicate any symptoms associated with coronavirus-19. Ebola Screen: No symptoms or risks identified at this time. Initial Sepsis Screen: Does the patient meet any 2 criteria? No. Patient's initial sepsis screen is negative. Does the patient have a suspected source of infection? No. Patient's initial sepsis screen is negative. Risk Assessment: Do you want to hurt yourself or someone else? Patient reports no desire to harm self or others. Onset of symptoms was October 28, 2022. 11:38 Method Of Arrival: Ambulatory 11:38 Acuity: KIRT 3 hb Triage Assessment: 13:42 General: Appears in no apparent distress. Behavior is calm, cooperative, appropriate ap3 for age. Pain: Denies pain. Neuro: Level of Consciousness is awake, alert, obeys commands, Oriented to person, place, time, situation, Reports weakness. Cardiovascular: Patient's skin is warm and dry. Respiratory: Airway is patent Respiratory effort is even, unlabored, Respiratory pattern is regular, symmetrical. 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 - Social history:: Smoking status: unknown. Screenin:42 [facility] ED Fall Risk Assessment (Adult) History of falling in the last 3 months, ap3 including since admission No falls in past 3 months (0 pts) Confusion or Disorientation No (0 pts) Intoxicated or Sedated No (0 pts) Impaired Gait No (0 pts) Mobility Assist Device Used No (0 pt) Altered Elimination No (0 pt) Score/Fall Risk Level 0 - 2 = Low Risk. Abuse screen: Denies threats or abuse. Nutritional screening: No deficits noted. Tuberculosis screening: No symptoms or risk factors identified. Assessment: 13:52 General: awaiting fluid completion prior to discharge. ap3 14:17 Reassessment: Patient appears in no apparent distress at this time. Patient and/or ss family updated on plan of care and expected duration. Pain level reassessed. Patient is alert, oriented x 3, equal unlabored respirations, skin warm/dry/pink. Vital Signs: 11:38 BP 189 / 86; Pulse 97; Resp 16; Temp 97.4; Pulse Ox 100% on R/A; Weight 90.72 kg; hb Height 5 ft. 1 in. ; Pain 0/10; 13:33 BP 146 / 69 Sitting; Pulse 100; ap3 13:38 BP 156 / 73 Standing; Pulse 103; ap3 11:38 Body Mass Index 37.79 (90.72 kg, 154.94 cm) hb 11:38 Pain Scale: Adult hb ED Course: 11:26 Patient arrived in ED. mr 11:26 Sancho Brand DO is Private Physician. mr 11:33 Alley Marie [facility]C [facility]. snw 11:33 Cliff Sanchez MD is Attending Physician. snw 11:40 Triage completed. hb 12:18 Initial lab(s) drawn, by me, sent to lab. Inserted saline lock: 20 gauge in right em1 antecubital area, using aseptic technique. Blood collected. 12:23 CT Head Brain wo Cont In Process Unspecified. EDMS 13:42 No provider procedures requiring assistance completed. ap3 13:42 Arm band placed on left wrist. ap3 13:43 Patient has correct armband on for positive identification. Adult w/ patient. Pulse ox ap3 on. NIBP on. 13:44 Sancho Brand DO is Referral Physician. snw 14:17 Jo Ann Young, HYUN is Primary Nurse. ss 14:17 IV discontinued, intact, bleeding controlled, No redness/swelling at site. Pressure ss dressing applied. Administered Medications: 13:51 Drug: NS 0.9% IV 500 ml Route: IV; Rate: bolus; Site: right forearm; ap3 14:20 Follow up: IV Status: Completed infusion; IV Intake: 500ml ss Medication: 13:43 VIS not applicable for this client. ap3 Intake: 14:20 IV: 500ml; Total: 500ml. Outcome: 13:44 Discharge ordered by . stefan 14:17 Discharged to home ambulatory. 14:17 Condition: good 14:17 Instructed on discharge instructions, follow up and referral plans. medication usage, Demonstrated understanding of instructions, follow-up care. 14:20 Patient left the ED. Signatures: Dispatcher [employer] EDMS Alley Marie, DRUM ATTENDANT-C DRUM ATTENDANT-Csnw Omid Dayanna Almanzar, Ghassan em1 Jo Ann Young, HYUN RN Michela Mathur, HYUN RN Elaine Samaniego RN RN ap3
[2022-10-29] MEDS ORDERED: NA CHLORIDE 0.9% 500 ML ONE (13:53)
[2022-10-29 14:34] VITALS: TEMP 97.4; O2SAT 100
[2022-10-29 14:36] VITALS: BP 156/73
== END 2022-10-29 14:20 | disposition home or self-care (01) ==
LOC: ER 11:23
DX: R42 Dizziness and giddiness (principal); Z88.8 Allergy status to other drugs, medicaments and biological substances
CPT/HCPCS: 85025; 36415; 81025; 80053; 70450; J7040